=== PATIENT | female | born 1940 | race Caucasian/White ===

== ENCOUNTER → 2017-07-25 | Day surgery (SDC) | payer MEDICARE ==
[~2017-07-25] MED LIST: ATOR10; LACTATED RINGER'S 1000 ML INJ 1,000 ML ONE; MIDAZOLAM HCL 2 MG/2 ML VIAL ONE; PROPOFOL 200 MG/20 ML AMP IV ONE; ceFAZolin 2 GM PREMIX 50 ML ONE
--- NOTE | 2017-07-25 16:15 | TN ---
cc: Roly Schaeffer MD DATE OF SURGERY: 07/25/2017 DATE OF PROCEDURE: 07/25/2017 PREOPERATIVE DIAGNOSIS: Infected seroma, right breast, status post lumpectomy for ductal carcinoma in situ. POSTOPERATIVE DIAGNOSIS: Infected seroma, right breast, status post lumpectomy for ductal carcinoma in situ. PROCEDURE PERFORMED: Incision and drainage, right breast seroma. SURGEON: Roly Schaeffer MD ANESTHESIA: General. COMPLICATIONS: None. INDICATIONS FOR PROCEDURE: Ms. Patricia is a very pleasant 77-year-old female who underwent needle localized right breast lumpectomy about 6 weeks ago. She was found to have a positive margin. She returned to the operating room several days later for reexcision lumpectomy. Postoperatively, she did well. She was seen back in the office on several occasions and was healing nicely and had no complications or problems. About a week ago, the patient developed some redness and swelling in her breast. She was placed on p.o. antibiotics. The redness and swelling persisted. She was seen in the office earlier today and was found to have an obvious infection of the right breast. I recommended immediate drainage of the lumpectomy cavity with intraoperative cultures. The patient and were agreeable. It should be noted that her surgical procedure was approximately 1 month ago. DETAILS OF PROCEDURE: The patient was identified, brought to the operating room, placed supine on the operating table. After adequate general anesthesia was achieved with an LMA, the right breast was prepped and draped in standard surgical fashion. 0.25% Marcaine was injected in the skin and subcutaneous tissue around the right nipple. The previous periareolar incision was then opened. A small amount of turbulent fluid came out. Intraoperative cultures were obtained. The wound was then opened widely. Old hematoma and tissue were then debrided manually out of the wound. The wound was then infiltrated with about 30 mL of hydrogen peroxide which was allowed to bubble out. The wound was then irrigated with 2 liters of warm saline solution. Ray-Tecs were used to manually debride the cavity. The cavity was inspected and no bleeding points were noted. The wound was then irrigated again with 500 mL of normal saline. The wound was then packed with a 2-inch Kerlix, which was infiltrated with additional 0.25% Marcaine local anesthetic. Sterile dressings were applied and the patient was awakened and brought to the recovery room in stable condition. Roly MD MACK Cueto/OSMEL , 03:55 PM , 04:14 PM
== END | disposition home or self-care (01) ==
LOC: ESDC 14:01
PROVIDERS: ATTEND Surgery Trauma Surgery
DX: L76.34 Postprocedural seroma of skin and subcutaneous tissue following other procedure (principal); D05.11 Intraductal carcinoma in situ of right breast; B95.7 Other staphylococcus as the cause of diseases classified elsewhere
CPT/HCPCS: 00400; 10140; 86403; 87070; 87077; 87176; 87186; 87205; J0690; J2250; J3010; J7120